=== PATIENT | male | born 1935 | race African-American/Black ===

== ENCOUNTER 2017-02-20 07:52 | Day surgery (SDC) | payer MEDICARE, OTHER ==
[2017-02-17 12:02] LABS: BASOPHILS 0.3 % (0-2); EOSINOPHILS 1.1 % (0-7); HEMATOCRIT 43.2 % (42.0-54.0); HEMOGLOBIN 14.2 g/dL (13.5-17.5); IMMATURE GRANULOCYTES 0.1 % (0-5); LYMPHOCYTES 44.3 % (15-50); MCH 28.4 pg (26.0-34.0); MCHC 32.9 g/dL (31.0-37.0); MCV 86.4 fL (80.0-100.0); MEAN PLATELET VOLUME 11.5 fL (7.4-10.4); MONOCYTES 11.3 % (2-11); NEUTROPHILS 42.9 % (40-80); PLATELET COUNT 204 10x3/uL (130-400); RDW 13.5 % (11.5-14.5); WBC 7.2 10x3/uL (4.8-10.8)
[2017-02-17 12:12] LABS: ANION GAP 13.5 mmol/L (8-16); CARBON DIOXIDE 25.7 mmol/L (21.0-32.0); CREATININE - SERUM 1.4 mg/dL (0.6-1.3); POTASSIUM - SERUM 3.2 mmol/L (3.5-5.1)
[~2017-02-20] VITALS: Ht 180.3 cm; Wt 102.1 kg
[~2017-02-20 07:52] MED LIST: BAYER CHEWABLE81 MG PO; GLUCOPHAGE500 MG PO; LIPITOR40 MG PO; LOPRESSOR HCT PO; NORVASC10 MG PO; ZESTRIL40 MG PO
[2017-02-20 09:29] VITALS: BP 144/69; Ht 180.3 cm; Wt 102.1 kg
[2017-02-20] MEDS ORDERED: HYDROCODONE-APA1 TAB PO (12:44)
--- NOTE | 2017-02-20 14:19 | NUR ---
1340-RECD TO ROOM. DROWSY, AROUSES EASILY. R ELBOW DRESSING DRY AND INTACT. R ARM IN SLING. DENIES PAIN. O2 ON AT 3L PER NC. AT BEDSIDE.
--- NOTE | 2017-02-20 16:40 | NUR ---
PATIENT AMBULATES TO BATHROOM AND VOIDS IN TOILET. MORE STEADY NOW WITH AMBULATING. LEFT WRIST PIV DC'D WITH TIP INTACT. SPOUSE ASSISTING PATIENT TO DRESS IN PERSONAL CLOTHING. DISCHARGE INSTRUCTIONS REVIEWED WITH PATIENT AND SPOUSE
--- NOTE | 2017-02-20 17:04 | NUR ---
DISCHARGE INSTRUCTIONS REVIEWED WITH PATIENT AND SPOUSE, PATIENT DISCHARGED HOME VIA WHEELCHAIR TO PRIVATE VEHICLE WITH SPOUSE
== END 2017-02-20 17:04 | disposition home or self-care (01) ==
LOC: D.OPS 07:52 → D.PAN 10:00 → D.OPS 10:00
PROVIDERS: Anesthesiology
DX: M25.521 Pain in right elbow (principal); Z01.812 Encounter for preprocedural laboratory examination

== ENCOUNTER 2017-05-04 05:29 | Day surgery (SDC) | payer MEDICARE, OTHER ==
[2017-05-02 09:50] LABS: BASOPHILS 0.1 % (0-2); EOSINOPHILS 1.4 % (0-7); HEMATOCRIT 40.7 % (42.0-54.0); HEMOGLOBIN 13.3 g/dL (13.5-17.5); IMMATURE GRANULOCYTES 0.1 % (0-5); LYMPHOCYTES 50.7 % (15-50); MCH 28.4 pg (26.0-34.0); MCHC 32.7 g/dL (31.0-37.0); MCV 86.8 fL (80.0-100.0); MEAN PLATELET VOLUME 11.6 fL (7.4-10.4); MONOCYTES 13.9 % (2-11); NEUTROPHILS 33.8 % (40-80); PLATELET COUNT 189 10x3/uL (130-400); RBC 4.69 10x6/uL (4.20-6.10); RDW 13.7 % (11.5-14.5); WBC 7.4 10x3/uL (4.8-10.8)
[2017-05-02 10:06] LABS: CALCIUM 8.6 mg/dL (8.5-10.1); CARBON DIOXIDE 27.4 mmol/L (21.0-32.0); CREATININE - SERUM 1.3 mg/dL (0.6-1.3); POTASSIUM - SERUM 3.4 mmol/L (3.5-5.1)
[~2017-05-04] VITALS: Ht 180.3 cm; Wt 99.8 kg
[~2017-05-04 05:29] MED LIST changes: +HYDROCODONE-APA1 TAB PO
[2017-05-04 06:51] VITALS: BP 134/58; Ht 180.3 cm; Wt 99.8 kg
[2017-05-04] MEDS ORDERED: HYDROCODONE-APA1 TAB PO (08:50)
--- NOTE | 2017-05-04 10:36 | NUR ---
1000 IV DC WITH CATHER TIP INTACT W/O REDNESS
--- NOTE | 2017-05-05 10:59 | OP ---
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 POSTOPERATIVE DIAGNOSIS: Painful exostosis olecranon process of the right elbow. PROCEDURE: Excision of painful exostosis olecranon process, right elbow. SURGEON: Earl Rushing MD. ANESTHESIA: General. INTRAOPERATIVE COMPLICATIONS: None. SUMMARY OF PATHOLOGIC FINDINGS: The patient had an approximately 1 cm x 1 cm wide exostosis emanating from the posterior aspect of his olecranon tip. OPERATIVE SUMMARY IN DETAIL: After obtaining the appropriate preoperative orthopedic surgery consents as well as anesthetic consultation, evaluation and clearance, the patient was brought to the operating room table and placed on the operating table in supine position. After adequate general laryngeal mask airway was administered, tourniquet was placed about the proximal aspect of the right upper extremity. Right upper extremity was then prepped and draped in routine sterile fashion. The arm was elevated and exsanguinated, tourniquet inflated to 350 mmHg. Previously utilized incision was taken down directly to the tip of the olecranon, cautery was then utilized to outline the tip of its entirety. A small hand osteotome was then used to excise the exostosis. The wound was then irrigated and closed with #1 Vicryl deep followed by 4-0 Prolene in a running. Sterile dressings were applied. Tourniquet was deflated. The patient was awakened, taken to the recovery room in stable condition. All final needle and sponge counts were correct. TRANSINT:[id number] Voice Confirmation ID: [id number] DOCUMENT ID: [id number] EARL RUSHING MD at 1059 CC: [id number] DICTATION DATE: 05/04/17 0853 PRE PRESS PROOFER: 05/04/17 0903 [facility] 05/04/17 [address] [place] [address]
== END 2017-05-04 10:15 | disposition home or self-care (01) ==
LOC: D.OPS 05:29 → D.PAN 10:35 → D.OPS 10:45 → D.PAN 10:45
PROVIDERS: Anesthesiology
DX: M25.421 Effusion, right elbow (principal); M77.9 Enthesopathy, unspecified; M25.521 Pain in right elbow; I10 Essential (primary) hypertension; E11.9 Type 2 diabetes mellitus without complications; Z01.812 Encounter for preprocedural laboratory examination